=== PATIENT | female | born 1960 | race Hispanic/Latino ===

== ENCOUNTER 2022-10-22 08:55 | Outpatient (CLI) | payer MEDICARE | END 2022-10-22 08:56 | disposition home or self-care (01) | LOC: BICMAMMO 08:55 | PROVIDERS: ATTEND Nurse Practitioner Family | DX: Z12.31 Encounter for screening mammogram for malignant neoplasm of breast (principal) | CPT/HCPCS: 77063; 77067 ==

== ENCOUNTER 2024-06-07 10:21 | Outpatient (CLI) | payer MEDICARE ==
[2024-06-07 12:23] LABS: #Basophils 0.04 10x3/uL (0.0-0.2); %Basophils 0.6 % (0.0-1.0); %Eosinophils 2.1 % (0.0-10.0); %Lymphocytes 26.4 % (21.0-51.0); %Monocytes 4.4 % (0.0-10.0); %Neutrophils 66.3 % (42.0-75.0); Hematocrit 36.1 % (36.0-47.0); Hemoglobin 11.7 g/dL (12.0-16.0); Mean Corpuscular HGB CONC 32.4 g/dL (32.0-36.0); Mean Corpuscular Hemoglobin 29.3 pg (27.0-31.0); Mean Corpuscular Volume 90.3 fL (78.0-98.0); Mean Platelet Volume 9.8 fL (7.4-10.4); Platelet Count 256 10x3/uL (130-400); RBC Distribution Width 12.3 % (11.5-14.5)
[2024-06-07 12:40] LABS: ALT (SGPT) 26 U/L (8-55); AST (SGOT) 25 U/L (5-34); Albumin 3.9 g/dL (3.4-4.8); Alkaline Phosphatase 80 U/L (40-110); Anion Gap 12 mmol/L (10-20); BUN (Urea Nitrogen) 44 mg/dL (9.8-20.1); Bilirubin, Direct 0.2 mg/dL (0.1-0.3); Bilirubin, Total 0.5 mg/dL (0.2-1.2); Calc. Creatinine Clearance 0 mL/min (70-130); Calcium 10.2 mg/dL (7.8-10.44); Carbon Dioxide 28 mmol/L (23-31); Chloride 103 mmol/L (98-107); Estimated GFR 37; Globulin 3.9 g/dL (2.4-3.5); Glucose 143 mg/dL (80-115); Potassium 4.9 mmol/L (3.5-5.1); Protein, Total 7.8 g/dL (5.8-8.1); Sodium 138 mmol/L (136-145)
== END 2024-06-07 10:22 | disposition home or self-care (01) ==
LOC: LABBT 10:21
PROVIDERS: ATTEND Surgery
DX: Z01.818 Encounter for other preprocedural examination (principal); K81.1 Chronic cholecystitis
CPT/HCPCS: 80053; 80076; 85025; 93005; 93010

== ENCOUNTER 2024-06-17 06:04 | Day surgery (SDC) | payer OTHER, MEDICARE ==
[2024-06-07 10:53] VITALS: BMI 23.7
[2024-06-17] MEDS ORDERED: PROPOFOL 20 ML ONE (06:56)
[2024-06-17] MEDS ORDERED: Midazolam HCl 2 mg/2 ml Vial ONE (06:56)
[2024-06-17] MEDS ORDERED: Rocuronium Bromide 10 MG/ML (10ML VIAL) ONE (06:56)
[2024-06-17] MEDS ORDERED: fentaNYL PF 100 MCG/2 ML SYRINGE ONE ×2 (06:56→08:53)
[2024-06-17] MEDS ORDERED: Bupivacaine 0.25% HCL 30 ML VIAL ONE (06:57)
[2024-06-17] MEDS ORDERED: EPINEPHrine 1 MG/ML VIAL ONE (06:57)
[2024-06-17] MEDS ORDERED: Indocyanine Green 25 MG/10 ML VIAL ONE (06:57)
[2024-06-17] MEDS ORDERED: Sodium Chloride 0.9% 100 ML ONE (07:18)
[2024-06-17] MEDS ORDERED: cefOXitin 2 GM VIAL ONE (07:18)
[2024-06-17] MEDS ORDERED: Lidocaine 1% PF 5 ML VIAL ONE (07:37)
[2024-06-17] MEDS ORDERED: Glycopyrrolate 0.2 MG/ML 5 ML SYRINGE ONE (07:37)
[2024-06-17] MEDS ORDERED: NEOSTIGMINE 3 MG/3 ML SYRINGE ONE (07:37)
[2024-06-17] MEDS ORDERED: Ketorolac Tromethamine 30 MG (1 mL) VIAL ONE (07:56)
[2024-06-17] MEDS ORDERED: Ondansetron PF 4 MG/2 ML Vial ONE (07:56)
[2024-06-17] MEDS ORDERED: Dexamethasone 20 MG/5 ML VIAL ONE (07:56)
[2024-06-17] MEDS ORDERED: Acetaminophen 500 MG TAB ONE (11:32)
== END 2024-06-17 12:30 | disposition home or self-care (01) ==
LOC: SDC 06:04
PROVIDERS: ATTEND Surgery
PROC: 0FT44ZZ Resection of Gallbladder, Percutaneous Endoscopic Approach (ICD-10-PCS; principal; 2024-06-17)
DX: K80.10 Calculus of gallbladder with chronic cholecystitis without obstruction (principal); K82.8 Other specified diseases of gallbladder; E11.9 Type 2 diabetes mellitus without complications; I10 Essential (primary) hypertension; E78.5 Hyperlipidemia, unspecified; Z98.890 Other specified postprocedural states; Z87.59 Personal history of other complications of pregnancy, childbirth and the puerperium; Z79.84 Long term (current) use of oral hypoglycemic drugs; Z88.8 Allergy status to other drugs, medicaments and biological substances
CPT/HCPCS: 88304; C1889; J0171; J0665; J0694; J1100; J1885; J2250; J2405; J2704

== ENCOUNTER 2024-06-30 12:43 | Observation (INO) | payer MEDICARE ==
[~2024-06-30 12:43] MED LIST: Iopamidol-370 76% 500 ML MDV (1 ML CHARGE) ONE
[2024-06-30 13:48] LABS: #Basophils Less than 0.03 10x3/uL (0.0-0.2); %Basophils 0.4 % (0.0-1.0); %Eosinophils 1.6 % (0.0-10.0); %Lymphocytes 28.7 % (21.0-51.0); %Monocytes 5.4 % (0.0-10.0); %Neutrophils 63.7 % (42.0-75.0); Hematocrit 32.3 % (36.0-47.0); Hemoglobin 10.8 g/dL (12.0-16.0); Mean Corpuscular HGB CONC 33.4 g/dL (32.0-36.0); Mean Corpuscular Hemoglobin 29.7 pg (27.0-31.0); Mean Corpuscular Volume 88.7 fL (78.0-98.0); Mean Platelet Volume 8.9 fL (7.4-10.4); Platelet Count 240 10x3/uL (130-400); RBC Distribution Width 12.2 % (11.5-14.5); Red Blood Cell (RBC) Count 3.64 mill/uL (4.20-5.40)
[2024-06-30 14:03] LABS: INR-International Normal Ratio 1.1; Prothrombin Time 13.7 sec (12.0-14.7)
[2024-06-30 14:04] LABS: PTT 40.5 sec (22.9-36.1)
[2024-06-30 14:14] LABS: ALT (SGPT) 22 U/L (8-55); AST (SGOT) 26 U/L (5-34); Albumin 3.8 g/dL (3.4-4.8); Alkaline Phosphatase 63 U/L (40-110); Anion Gap 15 mmol/L (10-20); BUN (Urea Nitrogen) 31 mg/dL (9.8-20.1); Bilirubin, Total 0.5 mg/dL (0.2-1.2); Calc. Creatinine Clearance 0 mL/min (70-130); Calcium 9.9 mg/dL (7.8-10.44); Carbon Dioxide 25 mmol/L (23-31); Chloride 104 mmol/L (98-107); Estimated GFR 54; Globulin 3.4 g/dL (2.4-3.5); Glucose 71 mg/dL (80-115); Magnesium 1.9 mg/dL (1.6-2.6); Potassium 3.8 mmol/L (3.5-5.1); Protein, Total 7.2 g/dL (5.8-8.1); Sodium 140 mmol/L (136-145)
[2024-06-30 14:17] LABS: Troponin I Less than 0.010 ng/mL (< 0.028)
[2024-06-30 15:37] LABS: Actual Bicarbonate (HCO3v) 26.3 mEq/L (22-28); Analyzer IN Cardio ER; Base Excess 1.2 mEq/L (-2.0 to +3.0); Calcium, Ionized (venous) 1.15 mmol/L (1.16-1.32); Chloride (VBG) 100 mmol/L (98-106); Hematocrit-VBG 36 % (36.0-47.0); Hemoglobin (Hb) 12.4 g/dL (11.7-16.0); Sodium 140 mmol/L (133-146); pH (venous) 7.397 (7.32-7.43)
[2024-06-30] MEDS ORDERED: traMADol HCl 50 MG TAB PO PRN (15:54)
[2024-06-30] MEDS ORDERED: Ondansetron ODT 4 MG TAB PO PRN (15:54)
[2024-06-30] MEDS ORDERED: Acetaminophen 325 MG TAB PO PRN (15:54)
[2024-06-30] MEDS ORDERED: Terbinafine 250 MG TAB PO SCH (16:00)
[2024-06-30] MEDS ORDERED: hydrALAZINE 20 MG/ML VIAL SLOW IVP PRN (16:28)
[2024-06-30] MEDS ORDERED: Dextrose 5% in Water 1,000 ML IV PRN (16:28)
[2024-06-30] MEDS ORDERED: Dextrose 50% Abboject 50 ML SYRINGE SLOW IVP PRN (16:28)
[2024-06-30] MEDS ORDERED: Insulin Lispro 100 UNIT/ML 10 ML VIAL SC PRN (16:28)
[2024-06-30] MEDS ORDERED: Glucagon 1 MG/ML KIT IM PRN (16:28)
[2024-06-30] MEDS: Lactated Ringer's 1,000 ML IV SCH (17:42)
[2024-06-30] MEDS: Gabapentin 300 MG CAP PO SCH (21:06)
[2024-07-01 05:06] LABS: #Basophils 0.03 10x3/uL (0.0-0.2); %Basophils 0.5 % (0.0-1.0); %Eosinophils 3.1 % (0.0-10.0); %Lymphocytes 29.9 % (21.0-51.0); %Monocytes 7.2 % (0.0-10.0); %Neutrophils 59.1 % (42.0-75.0); Hematocrit 29.6 % (36.0-47.0); Hemoglobin 9.7 g/dL (12.0-16.0); Mean Corpuscular HGB CONC 32.8 g/dL (32.0-36.0); Mean Corpuscular Hemoglobin 29.4 pg (27.0-31.0); Mean Corpuscular Volume 89.7 fL (78.0-98.0); Mean Platelet Volume 9.1 fL (7.4-10.4); Platelet Count 223 10x3/uL (130-400); RBC Distribution Width 12.3 % (11.5-14.5)
[2024-07-01 05:18] LABS: Anion Gap 12 mmol/L (10-20); BUN (Urea Nitrogen) 28 mg/dL (9.8-20.1); Calc. Creatinine Clearance 2 mL/min (70-130); Calcium 8.9 mg/dL (7.8-10.44); Carbon Dioxide 28 mmol/L (23-31); Chloride 106 mmol/L (98-107); Cholesterol 77 mg/dl (< 200 Desired); Estimated GFR 71; Glucose 132 mg/dL (80-115); HDL Cholesterol 26 mg/dL (>60 Neg Risk); LDL Cholesterol, Calculated 32 mg/dL; Potassium 3.7 mmol/L (3.5-5.1); Sodium 142 mmol/L (136-145); Triglycerides 94 mg/dL (Less than 150)
[2024-07-01] MEDS: Aspirin 81 mg Enteric Coated Tablet PO SCH (10:47)
[2024-07-01] MEDS: Multivitamin W/ Minerals 1 TAB PO SCH (10:47)
[2024-07-01] MEDS: Atorvastatin Calcium 40 MG TAB PO SCH (10:48)
[2024-07-01] MEDS ORDERED: Iopamidol-370 76% 500 ML MDV (1 ML CHARGE) ONE (11:23)
[2024-07-01 12:13] VITALS: BMI 22.2
[2024-07-01] MEDS: Sodium Chloride 0.9% 1,000 ML IV SCH (12:26)
[2024-07-01 16:34] VITALS: BP 119/65; TEMP 97.8
[2024-07-01] MEDS ORDERED: Lactated Ringer's 1,000 ML IV SCH (17:00)
[2024-07-01 17:43] VITALS: BMI 22.2
== END 2024-07-01 17:39 | disposition home or self-care (01) ==
LOC: ERS 12:43 → T4-A 16:50
PROVIDERS: ADMIT Hospitalist; ATTEND Internal Medicine
PROC: B24BZZZ Ultrasonography of Heart with Aorta (ICD-10-PCS; principal; 2024-06-30)
DX: R09.02 Hypoxemia (principal); R55 Syncope and collapse; I10 Essential (primary) hypertension; E11.9 Type 2 diabetes mellitus without complications; E78.5 Hyperlipidemia, unspecified; Z90.49 Acquired absence of other specified parts of digestive tract; Z87.59 Personal history of other complications of pregnancy, childbirth and the puerperium; Z88.6 Allergy status to analgesic agent; Z79.82 Long term (current) use of aspirin; Z79.4 Long term (current) use of insulin; Z79.84 Long term (current) use of oral hypoglycemic drugs; Z79.899 Other long term (current) drug therapy
CPT/HCPCS: 70450; 71045; 71275; 74177; 80048; 80061; 82805; 82962 ×2; 83735; 83880; 84484; 85025; 85610; 85730; 93005; 93306; 99285; G0378 ×3; J7030; J7120 ×2; Q9967 ×2; 36415; 36416; 80053; 84443; J1815